=== PATIENT | male | born 1960 | race African-American/Black ===

== ENCOUNTER 2023-12-24 12:05 | Emergency (ER) | payer BC, OTHER ==
[2023-12-24 12:22] VITALS: BMI 20.3
[2023-12-24 16:10] VITALS: BP 124/82; PULSE 84; RESP 20; TEMP 97.7
== END 2023-12-24 15:58 | disposition home or self-care (01) ==
LOC: JER 12:05
DX: M86.171 Other acute osteomyelitis, right ankle and foot (principal); Z53.29 Procedure and treatment not carried out because of patient's decision for other reasons
CPT/HCPCS: 99283-25